=== PATIENT | female | born 1950 | race Caucasian/White ===

== ENCOUNTER 2020-10-05 09:07 | Outpatient (CLI) | payer MEDICARE | END 2020-10-05 09:08 | disposition home or self-care (01) | LOC: CSHMAMMO 09:07 | PROVIDERS: ATTEND Obstetrics & Gynecology | DX: Z12.31 Encounter for screening mammogram for malignant neoplasm of breast (principal) | CPT/HCPCS: 77063; 77067 ==

== ENCOUNTER 2021-09-30 10:09 | Outpatient (CLI) | payer MEDICARE | END 2021-09-30 10:10 | disposition home or self-care (01) | LOC: CSHMRI 10:09 | PROVIDERS: ATTEND Otolaryngology Plastic Surgery within the Head & Neck | DX: H90.3 Sensorineural hearing loss, bilateral (principal) | CPT/HCPCS: 70553; 82565 ==

== ENCOUNTER 2021-10-07 07:51 | Outpatient (CLI) | payer MEDICARE | END 2021-10-07 07:52 | disposition home or self-care (01) | LOC: CSHMAMMO 07:51 | PROVIDERS: ATTEND Obstetrics & Gynecology | DX: Z12.31 Encounter for screening mammogram for malignant neoplasm of breast (principal); M81.0 Age-related osteoporosis without current pathological fracture; M85.851 Other specified disorders of bone density and structure, right thigh; M85.852 Other specified disorders of bone density and structure, left thigh | CPT/HCPCS: 77063; 77067; 77080 ==

== ENCOUNTER 2021-10-14 11:47 | Outpatient (CLI) | payer MEDICARE | END 2021-10-14 11:48 | disposition home or self-care (01) | LOC: CSHRAD 11:47 | PROVIDERS: ATTEND Internal Medicine Rheumatology | DX: M81.0 Age-related osteoporosis without current pathological fracture (principal); M47.814 Spondylosis without myelopathy or radiculopathy, thoracic region | CPT/HCPCS: 72072 ==